=== PATIENT | male | born 1975 | race Caucasian/White ===

== ENCOUNTER 2018-11-25 20:53 | Emergency (ER) | payer BC ==
[~2018-11-25] VITALS: Ht 188 cm; Wt 75.0 kg
[2018-11-25] MEDS ORDERED: LABETALOL HCL 100 MG/20 ML VIAL IV STA (21:18)
[2018-11-25 21:25] LABS: BASO % 0.3 % (0.0-1.0); EOS # 0.1 10^3/uL (0.0-0.50); EOS % 0.8 % (0.0-3.0); HEMATOCRIT 49.2 % (42.0-52.0); HEMOGLOBIN 17.3 g/dl (13.5-17.5); LYMPH # 2.4 10^3/uL (1.5-4.5); LYMPH % 33.4 % (24.0-44.0); MEAN CORPUSCULAR HEMOGLOBIN 31.6 pg (27.0-33.0); MEAN CORPUSCULAR HGB CONC 35.2 g/dl (32.0-36.5); MEAN CORPUSCULAR VOLUME 89.9 fl (80.0-96.0); MONO # 0.6 10^3/uL (0.0-0.8); MONO % 8.1 % (0.0-5.0); NEUTROPHILS % 57.1 % (36.0-66.0); PLATELET COUNT, AUTOMATED 177 10^3/uL (150-450); RED BLOOD COUNT 5.47 10^6/uL (4.30-6.10); WHITE BLOOD COUNT 7.1 10^3/uL (4.0-10.0)
--- NOTE | 2018-11-25 21:54 | ECGEPIP ---
Stationary ECG Study [facility] - ED Test Date: 2018-11-25 Pat Name: ZEINAB ALATORRE Department: Room: - Gender: M Roll Hand: kellee : 1975 Requested By: KEREN Ramos Order Number: [id number] Reading MD: Joseph Merrill Measurements Intervals Ragland Rate: 97 P: 68 MD: 144 QRS: 61 QRSD: 89 T: 46 QT: 330 QTc: 420 Interpretive Statements SINUS RHYTHM WITH SINUS ARRHYTHMIA POSSIBLE LEFT ATRIAL ENLARGEMENT ST changes in setting of suspected Left ventricular hypertrophy Electronically Signed On 11-25-2018 21:54:26 EDT by Joseph Merrill
[2018-11-25 21:55] LABS: BLOOD UREA NITROGEN 13 MG/DL (7-18); CALCIUM LEVEL 9.4 MG/DL (8.5-10.1); CARBON DIOXIDE LEVEL 29 MEQ/L (21-32); CHLORIDE LEVEL 101 MEQ/L (98-107); CPK CREATINE PHOSPHOKINASE 205 U/L (39-308); CREATININE FOR GFR 0.88 MG/DL (0.70-1.30); FREE T4 0.98 NG/DL (0.76-1.46); GLOMERULAR FILTRATION RATE > 60.0 (>60); GLUCOSE, FASTING 129 MG/DL (70-100); MB/CK RELATIVE INDEX 1.27 (< OR =4); POTASSIUM SERUM 3.3 MEQ/L (3.5-5.1); SODIUM LEVEL 137 MEQ/L (136-145); TROPONIN I < 0.02 NG/ML (< 0.10)
[2018-11-25] MEDS ORDERED: POTASSIUM CHLORIDE 10 MEQ SR TABLET PO ONE (22:00)
[2018-11-25 22:16] LABS: AMPHETAMINES LEVEL URINE NEGATIVE (NEGATIVE); BARBITURATES URINE NEGATIVE (NEGATIVE); BENZODIAZEPINES URINE NEGATIVE (NEGATIVE); CANNABINOIDS URINE NEGATIVE (NEGATIVE); COCAINE METABOLITE URINE NEGATIVE (NEGATIVE); METHADONE URINE NEGATIVE (NEGATIVE); OPIATES URINE NEGATIVE (NEGATIVE); PHENCYCLIDINE URINE NEGATIVE (NEGATIVE)
[2018-11-25] MEDS ORDERED: ACETAMINOPHEN TAB 650MG DOSE (2X325MG) PO ONE (22:30)
[2018-11-25] MEDS ORDERED: amLODIPine 10 MG TAB PO ONE (22:30)
[2018-11-25] MEDS ORDERED: MULTCAP PO (22:40)
[2018-11-25] MEDS ORDERED: AMLO10TA PO (23:00)
[2018-11-25 23:17] VITALS: BP 148/94
--- NOTE | 2018-11-26 01:30 | REP ---
Clinical: Acute chest pain . Comparison: None . Findings: The mediastinum and cardiac silhouette are stable and within normal limits for portable technique. The lung juarez are clear without acute consolidation, effusion, or pneumothorax. Skeletal structures are intact. Impression: No acute cardiopulmonary process appreciated. Electronically Signed by Clinton Bolton MD 11/26/2018 01:22 A
== END 2018-11-25 23:29 | disposition home or self-care (01) ==
LOC: M ED 20:53
DX: T43.615A Adverse effect of caffeine, initial encounter (principal); R07.89 Other chest pain; R00.2 Palpitations; F10.10 Alcohol abuse, uncomplicated; Z72.0 Tobacco use; Z79.899 Other long term (current) drug therapy

== ENCOUNTER → 2020-01-04 | Outpatient (REF) | payer BC ==
[~2020-01-04] MED LIST: AMLO10TA PO; MULTCAP PO
[2020-01-04 21:23] LABS: BLOOD UREA NITROGEN 17 MG/DL (7-18); CALCIUM LEVEL 8.9 MG/DL (8.5-10.1); CARBON DIOXIDE LEVEL 29 MEQ/L (21-32); CHLORIDE LEVEL 105 MEQ/L (98-107); GLOMERULAR FILTRATION RATE > 60.0 (>60); GLUCOSE, FASTING 80 MG/DL (70-100); SODIUM LEVEL 141 MEQ/L (136-145)
== END ==
LOC: M LABDRWAD 11:48
PROVIDERS: ATTEND Internal Medicine
DX: E87.6 Hypokalemia (principal)

== ENCOUNTER → 2020-08-13 | Outpatient (CLI) | payer SELFPAY | LOC: M LABSMTC 08:26 | PROVIDERS: ATTEND Pediatrics | DX: Z20.822 Contact with and (suspected) exposure to COVID-19 (principal) ==

== ENCOUNTER → 2020-10-03 | Outpatient (REF) | payer BC ==
[2020-10-03 14:12] LABS: ALBUMIN 4.4 GM/DL (3.2-5.2); ALT/SGPT 34 U/L (12-78); BILIRUBIN,TOTAL 0.3 MG/DL (0.2-1.0); BLOOD UREA NITROGEN 16 MG/DL (7-18); CALCIUM LEVEL 9.3 MG/DL (8.5-10.1); CARBON DIOXIDE LEVEL 33 MEQ/L (21-32); CHLORIDE LEVEL 105 MEQ/L (98-107); CHOLESTEROL LEVEL 251 MG/DL (<200); CHOLESTEROL RISK RATIO 5.122 (<5); CREATININE FOR GFR 0.95 MG/DL (0.70-1.30); GLOMERULAR FILTRATION RATE > 60.0 (>60); GLUCOSE, FASTING 90 MG/DL (70-100); HDL CHOLESTEROL 49 MG/DL (>40); LDL CHOLESTEROL 178 MG/DL (<100); NON-HDL-C 202 MG/DL; POTASSIUM SERUM 4.4 MEQ/L (3.5-5.1); SODIUM LEVEL 141 MEQ/L (136-145); TOTAL PROTEIN 7.7 GM/DL (6.4-8.2); TRIGLYCERIDES LEVEL 118 MG/DL (<150)
== END ==
LOC: M LABDRWAD 12:21
PROVIDERS: ATTEND Internal Medicine
DX: E78.00 Pure hypercholesterolemia, unspecified (principal)